=== PATIENT | male | born 1950 | race Caucasian/White ===

== ENCOUNTER 2020-11-23 21:48 | Emergency (ER) | payer SELFPAY ==
[~2020-11-23] VITALS: Ht 175.3 cm; Wt 91.0 kg
[2020-11-23 21:56] VITALS: BP 155/86
[2020-11-23] MEDS ORDERED: IBUPROFEN 600MG TABLET PO STA (22:49)
[2020-11-23] MEDS ORDERED: GABAPENTIN 400MG CAPSULE PO ONE (23:00)
[2020-11-23] MEDS ORDERED: METO100T16 PO (23:43)
[2020-11-23] MEDS ORDERED: IBUP-2029 PO (23:43)
[2020-11-23] MEDS ORDERED: GABA-533 PO (23:43)
== END 2020-11-24 00:38 | disposition home or self-care (01) ==
LOC: ER 21:48
DX: S00.83XA Contusion of other part of head, initial encounter (principal); Z87.828 Personal history of other (healed) physical injury and trauma; Y04.0XXA Assault by unarmed brawl or fight, initial encounter; Y93.89 Activity, other specified; Y92.488 Other paved roadways as the place of occurrence of the external cause
CPT/HCPCS: 70486; 99284